=== PATIENT | female | born 1935 | race Caucasian/White ===

== ENCOUNTER 2018-01-27 09:55 | Outpatient (CLI) | payer OTHER | END 2018-01-27 09:56 | disposition home or self-care (01) | LOC: DTY/OP 09:55 | PROVIDERS: ATTEND Family Medicine | DX: E78.2 Mixed hyperlipidemia (principal); I10 Essential (primary) hypertension | CPT/HCPCS: 97802 ==

== ENCOUNTER 2019-12-07 10:53 | Outpatient (CLI) | payer MEDICARE, OTHER ==
--- NOTE | 2019-12-07 11:08 | RAD ---
2 view chest: [12/07/2019] Comparison:05/10/2015 HISTORY: Short of breath FINDINGS: Stable interstitial prominence and pulmonary hyperinflation suggests COPD. Postoperative cl ips overlie the left axillary region. No pneumothorax, pleural fluid, focal consolidation, or alveolar edema. Severe anterior wedge compression deformity at the thoracolumbar junction again noted . There is tortuosity of the descending thoracic aorta. IMPRESSION: Stable appearance of the chest as above.
== END 2019-12-07 10:54 | disposition home or self-care (01) ==
LOC: RAD 10:53
PROVIDERS: ATTEND Internal Medicine Pulmonary Disease
DX: R06.00 Dyspnea, unspecified (principal)
CPT/HCPCS: 71046

== ENCOUNTER 2023-12-24 09:43 | Outpatient (CLI) | payer MEDICARE, OTHER | END 2023-12-24 09:44 | disposition home or self-care (01) | LOC: RAD 09:43 | PROVIDERS: ATTEND Internal Medicine Critical Care Medicine | DX: R06.00 Dyspnea, unspecified (principal); I70.0 Atherosclerosis of aorta; S32.019A Unspecified fracture of first lumbar vertebra, initial encounter for closed fracture; Z98.890 Other specified postprocedural states | CPT/HCPCS: 71046 ==

== ENCOUNTER 2025-08-31 10:24 | Outpatient (CLI) | payer OTHER | END 2025-08-31 10:25 | disposition home or self-care (01) | LOC: DTY/OP 10:24 | PROVIDERS: ATTEND Family Medicine | DX: I10 Essential (primary) hypertension (principal); E78.5 Hyperlipidemia, unspecified; R13.10 Dysphagia, unspecified | CPT/HCPCS: 97802 ==